=== PATIENT | female | born 1955 | race Caucasian/White ===

== ENCOUNTER → 2017-04-12 | Outpatient (CLI) | payer OTHER ==
--- NOTE | 2017-04-12 09:15 | REPMRS ---
Patient History The patient states she had a clinical breast exam in 04/09 Patient is postmenopausal. Family history of colorectal cancer in father at age 80, breast cancer in sister at age 51, and unknown cancer in mother at age 79. Benign excisional biopsy of the right breast. Took hormonal contraceptives for 15 years. Digital Woman Screen Mammo: April 12, 2017 - Exam #: [id number] Bilateral CC and MLO view(s) were taken. Technologist: Stefanie Berry, Technologist Prior study comparison: April 11, 2016, digital woman screen mammo performed at [facility]. April 10, 2015, digital bilateral screening mammo, performed at [facility]. FINDINGS: There are scattered fibroglandular densities. There has been no change in the appearance of the mammogram from the prior studies. There is a mild amount of residual fibroglandular tissue which is fairly symmetric. There is no interval development of dominant mass, architectural distortion, or clustered microcalcification suggestive of malignancy. ASSESSMENT: BI-RADS/ACR category 1 mammogram. Negative. Recommendation Routine screening mammogram in 1 year (for women over age 40). This mammogram was interpreted with the aid of an FDA-approved computer-aided dectection system. Electronically Signed By: Quique Mahmood MD 04/12/17 0986
== END ==
LOC: M WHC 07:35
PROVIDERS: ATTEND Nurse Practitioner Family
DX: Z12.31 Encounter for screening mammogram for malignant neoplasm of breast (principal)

== ENCOUNTER → 2018-01-10 | Outpatient (CLI) | payer OTHER | LOC: M RAD 14:46 | DX: M54.41 Lumbago with sciatica, right side (principal); R93.7 Abnormal findings on diagnostic imaging of other parts of musculoskeletal system | CPT/HCPCS: 72148 ==

== ENCOUNTER → 2018-01-18 | Outpatient (CLI) | payer OTHER | LOC: M RAD 09:47 | DX: M79.1 Myalgia (principal); M53.3 Sacrococcygeal disorders, not elsewhere classified; M51.26 Other intervertebral disc displacement, lumbar region; M70.61 Trochanteric bursitis, right hip; M70.62 Trochanteric bursitis, left hip | CPT/HCPCS: 72195 ==

== ENCOUNTER → 2018-04-13 | Outpatient (CLI) | payer OTHER | LOC: M WHC 07:59 | DX: Z12.31 Encounter for screening mammogram for malignant neoplasm of breast (principal) | CPT/HCPCS: 77067 ==

== ENCOUNTER → 2019-04-18 | Outpatient (CLI) | payer OTHER ==
--- NOTE | 2019-04-18 08:06 | REPMRS ---
Patient History The patient states she has not had a clinical breast exam in over a year. Family history of colorectal cancer at age 80 in father, breast cancer at age 51 in sister. Benign excisional biopsy of the right breast. Took hormonal contraceptives for 15 years. Digital Woman Screen Mammo: April 18, 2019 - Exam #: [id number] Bilateral CC and MLO view(s) were taken. Technologist: Bozena Mathew, Technologist Prior study comparison: April 13, 2018, bilateral digital woman screen mammo performed at [facility]. April 12, 2017, digital woman screen mammo performed at [facility]. April 11, 2016, digital woman screen mammo performed at [facility]. FINDINGS: There are scattered fibroglandular densities. There is a moderate amount of residual fibroglandular tissue which is fairly symmetric. There is no interval development of dominant mass, architectural distortion, or grouped microcalcification typical of malignancy. There has been no change in the appearance of the mammogram from the prior studies. 3-D tomosynthesis shows no additional findings. Assessment: BI-RADS/ACR category 1 mammogram. Negative Mammogram. Recommendation Routine screening mammogram of both breasts in 1 year (for women over age 40). This patient's Lifetime Breast Cancer RIsk is estimated at 6.4 %. This mammogram was interpreted with the aid of an FDA-approved computer-aided dectection system. Electronically Signed By: Raul Wang MD 04/18/19 0806
== END ==
LOC: M WHC 06:35
PROVIDERS: ATTEND Nurse Practitioner Family
DX: Z12.31 Encounter for screening mammogram for malignant neoplasm of breast (principal); Z80.3 Family history of malignant neoplasm of breast; Z80.0 Family history of malignant neoplasm of digestive organs

== ENCOUNTER → 2019-04-18 | Outpatient (CLI) | payer OTHER ==
--- NOTE | 2019-04-19 09:18 | REP ---
MRI lumbar spine without contrast: History: Low back pain radiating to the left buttock and down the left leg. Degenerative disc disease. Spinal stenosis. Comparison lumbar spine MRI study January 10, 2018. Comparison study was read as showing a large right L5-S1 disc herniation with sequestered extruded fragment. I do not have a history of interval surgery. Technique: Sagittal and axial T1 and T2-weighted scans are acquired in the usual fashion with and without fat saturation. Sequences include spin echo, turbo spin-echo, and STIR imaging sequences. MRI findings: There is a rudimentary disc again noted at S1, S2. The conus medullaris is unchanged in appearance or position at L1. No extra vertebral abnormality is observed. At L5-S1, the previously noted large low T1 low T2 signal intensity lesion compressing the thecal sac on the right is no longer visible. There is moderate bilateral ligamentum flavum hypertrophy and there is new ligamentum flavum hypertrophy on the left compressing the thecal sac from the left side. This is somewhat similar in signal intensity to the previously noted right-sided abnormality. I suspect these changes are related to facet arthropathy. There is advanced osteoarthritic facet hypertrophy and spur formation. A small quantity of facet joint fluid is visible bilaterally. No geraldine synovial cyst is seen. There is central canal stenosis at L5-S1 due to the moderate bilateral facet hypertrophy in addition to diffuse disc bulging. There is a tiny left paracentral focal disc protrusion. There is mild right and left foraminal narrowing. There is a degenerative grade 1 3-4 mm L5-S1 spondylolisthesis. This is a little more prominent than on the prior study when it measured 2 mm. At L4-5, there is diffuse disc bulging. Bilateral ligamentum flavum hypertrophy and facet hypertrophy are noted. Canal size is borderline. Findings are felt to be unchanged. Facet hypertrophy is again noted unchanged. At L3-4, there is mild central canal stenosis due to a broad-based disc bulge again noted with evidence of annulus tear. There is minimal ligamentum flavum and facet hypertrophy. Pedicles developmentally short. Midline AP dimension of the thecal sac at L3-4 is 7 mm. These findings are felt to be unchanged. No foraminal encroachment. At L2-3, there is mild disc bulging indenting the ventral margin of the thecal sac as before. There is a small left posterior focal disc protrusion indenting the thecal sac at L1-2 again noted unchanged. Impression: Degenerative spondylosis changes are again noted. The findings at L5-S1 are changed dramatically. The previously noted low signal intensity material compressing the thecal sac from the right side at L5-S1 has largely resolved. There is similar material which is felt to be increased ligamentum flavum hypertrophy on the left today compressing the thecal sac dorsolaterally from the left. There is central canal stenosis at L5-S1 as a result. These changes are felt to reflect facet arthropathy and/or associated inflammation. There is a mild degenerative spondylolisthesis at L5-S1 4 mm. This is slightly more prominent. Stable central canal stenosis is again noted L3-4. Other findings are unchanged. Electronically Signed by Quintin Wang MD 04/19/2019 09:57 A
== END ==
LOC: M RAD 15:11
PROVIDERS: ATTEND Nurse Practitioner Family
DX: M54.42 Lumbago with sciatica, left side (principal); M54.41 Lumbago with sciatica, right side; G89.29 Other chronic pain; M47.816 Spondylosis without myelopathy or radiculopathy, lumbar region; M48.061 Spinal stenosis, lumbar region without neurogenic claudication; M51.26 Other intervertebral disc displacement, lumbar region

== ENCOUNTER → 2020-04-17 | Outpatient (CLI) | payer MEDICAID ==
--- NOTE | 2020-04-17 09:01 | REPMRS ---
Patient History The patient states she had a clinical breast exam in March 2020. Family history of colorectal cancer at age 80 in father, breast cancer at age 51 in sister. Benign excisional biopsy of the right breast. Took hormonal contraceptives for 15 years. Digital Woman Screen Mammo: April 17, 2020 - Exam #: [id number] Bilateral CC and MLO view(s) were taken. Technologist: Emmanuelle Sylvester, Technologist Prior study comparison: April 18, 2019, bilateral digital woman screen mammo performed at [facility]. April 13, 2018, bilateral digital woman screen mammo performed at [facility]. April 12, 2017, digital woman screen mammo performed at [facility]. FINDINGS: There are scattered fibroglandular densities. The Volpara volumetric breast density category is:B. There has been no change in the appearance of the mammogram from the prior studies. There is a mild amount of scattered fibroglandular density which is fairly symmetric. There is no interval development of dominant mass, architectural distortion, or grouped microcalcification suggestive of malignancy. 3-D tomosynthesis shows no additional findings. Assessment: BI-RADS/ACR category 1 mammogram. Negative Mammogram. Recommendation Routine screening mammogram of both breasts in 1 year (for women over age 40). This patient's Lifetime Breast Cancer Risk is estimated at 6.1 %. This mammogram was interpreted with the aid of an FDA-approved computer-aided dectection system. Electronically Signed By: Raul Wang MD 04/17/20 0901
== END ==
LOC: M WHC 08:18
PROVIDERS: ATTEND Nurse Practitioner Family
DX: Z12.31 Encounter for screening mammogram for malignant neoplasm of breast (principal); Z80.0 Family history of malignant neoplasm of digestive organs; Z80.3 Family history of malignant neoplasm of breast

== ENCOUNTER → 2021-05-21 | Outpatient (CLI) | payer OTHER ==
--- NOTE | 2021-05-21 11:35 | DEXAMM ---
INDICATION: POST MENOPAUSAL. COMPARISON: None. TECHNIQUE: Bone density was measured using dual-energy x-ray absorptiometry (DEXA). FINDINGS: AP SPINE L1-L4 BMD 1.037 g/cm2 Young Adult T-Score -1.3 Age Matched Z-Score 0.3. LT FEMUR, TOTAL BMD 0.822 g/cm2 Young Adult T-Score -1.5 Age Matched Z-Score -0.2. LT NECK BMD 0.805 g/cm2 Young Adult T-Score -1.7 Age Matched Z-Score -0.1. RT FEMUR, TOTAL BMD 0.859 g/cm2 Young Adult T-Score -1.2 Age Matched Z-Score 0.1. RT NECK BMD 0.771 g/cm2 Young Adult T-Score -1.9 Age Matched Z-Score -0.4. IMPRESSION: There is low bone density of the spine. There is low bone density of the left hip. There is low bone density of the right hip. FOLLOW-UP: Recommendation for the next bone density exam: 2 years. <Electronically signed by Quique Mahmood > 05/21/21 [id number]
--- NOTE | 2021-05-21 11:43 | REPMRS ---
Patient History The patient states she had a clinical breast exam in March 2021. Family history of colorectal cancer at age 80 in father, breast cancer at age 51 in sister. Benign excisional biopsy of the right breast. Took hormonal contraceptives for 15 years. 40 lb intentional weight loss. Moderna vaccines 12/2020 left arm. 12/2020 left arm. Patient states no breast complaints today. Patient has signed MRS History Sheet. Digital Woman Screen Mammo: May 21, 2021 - Exam #: [id number] Bilateral CC and MLO view(s) were taken. Technologist: RT Jennifer Prior study comparison: April 17, 2020, bilateral digital woman screen mammo performed at [facility]. April 18, 2019, bilateral digital woman screen mammo performed at [facility]. FINDINGS: There are scattered fibroglandular densities. Screening. Digital screening (2D) mammography was performed bilaterally in the CC and MLO projections. Additionally, breast tomosynthesis (3D mammography) was performed bilaterally in the CC and MLO projections. Todays exam was compared to the prior exam/exams. By history, the patient has no complaints of a palpable breast abnormality or other significant breast complaints. The Volpara volumetric breast density category is B, there are scattered areas of fibroglandular densities. The breasts are unchanged in size and shape. There are no ralph-soft tissue densities or spiculated masses. There is no internal architectural distortion. There are no suspicious ralph-calcific clusters. Skin thickening or nipple retraction is not present. IMPRESSION: BI-RADS Category 2- Benign Findings. There is no evidence of malignant alteration of the breasts. Followup examination recommended in one year. The lifetime Tyrer-Cuzick score is 5.8% This mammogram was read with the assistance of [employer] 3D,an FDA approved computer aided detection system for mammography. Negative x-ray reports should not delay surgical consultation if a dominant or clinically suspicious mass is present. Not all breast cancers can be identified by mammography. Therefore, we recommend that you continue to perform regular breast self-examination and physical examination and then promptly contact your physician of any concerns or changes. Adenosis and dense breasts may obscure an underlying neoplasm. No significant changes when compared with prior studies. Assessment: BI-RADS/ACR category 2 mammogram. Benign Findings. Recommendation Routine screening mammogram of both breasts in 1 year. Electronically Signed By: Terence Lam MD 05/21/21 0974
== END ==
LOC: M WHC 08:30
PROVIDERS: ATTEND Nurse Practitioner Family
DX: Z12.31 Encounter for screening mammogram for malignant neoplasm of breast (principal); M85.89 Other specified disorders of bone density and structure, multiple sites

== ENCOUNTER → 2023-11-27 | Outpatient (CLI) | payer MEDICAID, MEDICARE, OTHER | LOC: M WHC 08:58 | PROVIDERS: ATTEND Physician Assistant Medical | DX: Z12.31 Encounter for screening mammogram for malignant neoplasm of breast (principal) ==

== ENCOUNTER → 2024-11-27 | Outpatient (CLI) | payer MEDICARE | LOC: M WHC 06:42 | PROVIDERS: ATTEND Physician Assistant Medical | DX: Z12.31 Encounter for screening mammogram for malignant neoplasm of breast (principal); R92.323 Mammographic fibroglandular density, bilateral breasts ==